=== PATIENT | male | born 1985 | race Caucasian/White ===

== ENCOUNTER 2021-10-29 17:14 | Emergency (ER) | payer BC, SELFPAY ==
[2021-10-29 17:15] VITALS: BP 167/99; PULSE 78; RESP 14; TEMP 37.1; O2SAT 98; BMI 33.8
--- NOTE | 2021-10-29 17:52 | EDS_ITS ---
HPI History of Present Illness Chief Complaint: Bite Detail of Chief Complaint: Swelling left hand status post dog bite 2 weeks ago Informant: patient Occured/Mechanism Comment: Swelling started this past Friday after mowing the yard and doing yard work Onset/Context/Timing Context: Sudden Onset Timing: Continuous Quality of Pain: - (Patient does not complain of pain he complains of swelling) Location: Left hand and fingers Current Severity: Mild Maximum Severity: Mild Worsened by: Nothing Relieved by: Nothing Associated Symptoms Associated Symptoms: Negative for Parasthesia, Weakness and Loss of Funtion Narrative Narrative: Patient is a 36-year-old [id number] male who was bit by dog approximate 2 weeks ago. He did not seek medical attention at that time. He states since Friday has had wrist pain and swelling of his hand and fingers. He did yard work and mow the yard. He went to work. He is concerned because of swelling has not gotten better. He denies paresthesia, anesthesia or motor weakness. Tetanus Immunization: 5-10 years Prior similar symptoms: No Recent Illness/Hospitalization: No [facility] Medical History Acute bronchitis, unspecified Encounter for screening for COVID-19 Home Medications cephalexin 500 mg PO Q6 #40 capsule 01/15/17 [Rx Last Taken Unknown] cetirizine [Zyrtec] 10 mg PO DAILY 01/15/17 [History Last Taken Unknown] echinacea [Echinacea Herb] 380 mg PO DAILY 01/15/17 [History Last Taken Unknown] multivitamin [Daily Multiple Vitamin] 1 ea PO DAILY 01/15/17 [History Last Taken Unknown] amoxicillin 875 mg-potassium clavulanate 125 mg tablet 1 tab PO BID #20 tab 05/09/21 [Rx Last Taken Unknown] Allergy/AdvReac Type Severity Reaction Status Date / Time No Known Allergies Allergy Verified 10/29/21 17:15 Social History (Updated 10/29/21 @ 17:[address] Nito Cho MD) household members: spouse and children Smoking Status: Never smoker substance use type: does not use ROS ROS ED Constitutional Constitutional ED: Denies chills, fever(s), subjective, sweats or weight loss Eyes Eyes: Denies blurry vision, change in vision or diplopia ENT ENT ED: Denies ear pain or rhinorrhea Musculoskeletal Musculoskeletal: Denies back pain, myalgias or neck pain Integumentary Reports other Details: Healing dog bite to the left wrist and hand without evidence of infection ; Denies abscess, Abrasions or rash Neurologic Neurologic: Denies paresthesias or weakness Hematologic/Lymphatic Hematologic/Lymphatic: Denies easy bleeding, easy bruising or lymphadenopathy EXAM Physical Exam Const Vital Signs: 10/29/21 17:15 Temperature 98.7 F Temperature Source Temporal Pulse Rate 78 Respiratory Rate 14 Blood Pressure 167/99 H Blood Pressure Mean 121 Pulse Ox 98 Oxygen Delivery Method Room Air Positive well nourished, well developed and obese General Appearance ED: well developed and NAD Nutritional Appearance: obese HEENT normocephalic and atraumatic Eyes PERRL and EOMs intact bilaterally Neck supple Resp normal respiratory effort Cardio regular rate and regular rhythm Extremity full ROM; Negative for normal to inspection Extremity Narrative: Patient has swelling of the left hand and fingers. There is evidence of dog bite. There is multiple sites. There is no erythema, warmth , fluctuance or induration. There is no lymphangitis. There is no epitrochlear lymphadenopathy. Patient complains of pain with active and passive flexion and extension at the wrist. He does not have pain in his PIP or DIP joints of the fingers or IP joint of his thumb. Median, radial and ulnar function intact. General Extremety ED: Negative for edema General Extremity: Negative for edema Neuro oriented x3, CN's II-XII intact bilaterally and moves all extremities Sensorium / Orientation: alert Psych mental status grossly normal Skin Skin Narrative: Puncture wounds are healing without evidence infection Lesions: No no lesions Rashes: no rashes Trauma: puncture; Negative for abrasion or laceration MDM MDM MDM Narrative Medical decision making narrative: Since patient pain the patient of the carpal bones and medic carpal bones x-ray was obtained. Radiography Diagnostic Testing: Three-view x-ray of the left hand was independently reviewed and interpreted by me at 1756. There is no evidence of fracture, subluxation or dislocation. There is no evidence of tooth fragments. There is no soft tissue swelling. There is no volar fat pad. There is 3 osseous structures noted on the lateral view on the dorsal side of the radius. This does not appear to be acute or tooth fragments from dog bite. Discharge Plan Triage Chief Complaint: Bite ED Provider: Nito Cho Dx/Rx/DC Orders Clinical Impression: Swelling of left hand, Puncture wound of left hand Instructions: ED Lymphedema Prescriptions: No Action amoxicillin-pot clavulanate 875-125 mg tablet 1 tab PO BID Qty: 20 RF: 0 multivitamin [Daily Multiple] 1 EACH tablet 1 ea PO DAILY RF: 0 cetirizine [Zyrtec] 10 MG tablet 10 mg PO DAILY RF: 0 echinacea [Echinacea Herb] 380 MG capsule 380 mg PO DAILY RF: 0 cephalexin 500 MG capsule 500 mg PO Q6 Qty: 40 RF: 0 Primary Care Provider: Liam Seo Referrals: Liam Seo, [Primary Care Provider] - 3-5 Days if not improving Disposition Disposition: Home, Self Care
--- NOTE | 2021-10-29 17:53 | RAD_ITS ---
STUDY: XR Hand Min 3 Views REASON FOR EXAM: Male, 36 years old. Injury/PainTechnologist Notes BITE BY FRIENDS DOG A COUPLE OF WEEKS AGO. PAIN AND SWELLING. TECHNIQUE: XR Hand Min 3 Views LEFT COMPARISON: None. FINDINGS: Normal radiocarpal articulation. Normal distal radioulnar joint. Normal visualized carpal bones. Normal carpal articulations Normal carpometacarpal articulation of the thumb. Normal second through fifth carpometacarpal joints. Normal metacarpi. Normal metacarpophalangeal joint of the thumb. Normal interphalangeal joint of the thumb. Normal proximal and distal phalanges of the thumb. Normal metacarpophalangeal joints of the second through fifth fingers. Normal proximal and distal interphalangeal joints of the second through fifth fingers. Normal phalanges of the second through fifth fingers. The soft tissue structures are unremarkable. RAD/Hand Min 3 Views IMPRESSION: There are no acute findings. Electronically Signed: Danilo Jon MD at 18:09 EDT ,
== END 2021-10-29 18:10 | disposition home or self-care (01) ==
PROVIDERS: Emergency Provider Emergency Medicine; PCP Family Medicine; Visit Provider Emergency Medicine
DX: M79.89 Other specified soft tissue disorders (principal); S61.432A Puncture wound without foreign body of left hand, initial encounter; M25.532 Pain in left wrist; W54.0XXA Bitten by dog, initial encounter; E66.9 Obesity, unspecified; Z79.899 Other long term (current) drug therapy
CPT/HCPCS: 73130; 99282